=== PATIENT | female | born 1970 | race Caucasian/White ===

== ENCOUNTER 2022-11-17 16:50 | Outpatient (CLI) | payer OTHER, SELFPAY ==
--- NOTE | 2022-11-17 16:45 | CRLHL7_ITS ---
For Patients: As a result of the Cures Act, medical imaging exams and procedure reports are released immediately into your electronic medical record. You may view this report before your referring provider. If you have questions, please contact your health care provider. BILATERAL SCREENING MAMMOGRAM WITH COMPUTER-AIDED DETECTION AND TOMOSYNTHESIS TECHNIQUE: CC and MLO views were obtained. These mammographic images have been obtained using full-field digital technique. These mammographic images were interpreted with the benefit of computer-aided detection. Breast Tomosynthesis was used in this interpretation. COMPARISON FILM: 06/24/21, 08/17/16, 09/20/14. FINDINGS: There are scattered areas of fibroglandular density IMPRESSION: There is no radiographic evidence for malignancy. ASSESSMENT: BI-RADS Category 1: Negative RECOMMENDATION: Routine screening mammogram in 1 year. A lay language report of this examination will be provided to the patient. Jefry Kim M.D. Diagnostic Radiologist [email or web address] Transcribed: 3:59 p.mSushila hdz/Dictated by: Jefry Kim MD @ 11/18/2022 8:59:00 AM (Electronically Signed)
== END 2022-11-17 16:51 | disposition home or self-care (01) ==
PROVIDERS: Visit Provider Registered Nurse
DX: Z12.31 Encounter for screening mammogram for malignant neoplasm of breast (principal)
CPT/HCPCS: 77063; 77067; T1013

== ENCOUNTER 2023-01-21 23:07 | Emergency (ER) | payer OTHER, SELFPAY ==
[2023-01-21 23:16] VITALS: BP 154/86; PULSE 90; RESP 20; TEMP 37.1; O2SAT 100; BMI 29.9
--- NOTE | 2023-01-21 23:55 | ED_ITS ---
HPI - General Adult General Chief complaint: Abdominal Pain Stated complaint: pain in her abdomen, ovaries especially Time Seen by Provider: 01/22/23 00:01 Source: patient and family Mode of arrival: ambulatory Limitations: language barrier ( daughter acts as behavioral health counselor. I have good foundations and Danish in can confirm that she is interpreting correctly and very well.) History of Present Illness HPI narrative: 52-year-old female has experienced postmenopausal bleeding now on 2 episodes since October. The 1st episode was light. Tonight she had an episode of heavy sudden cramping and had a gush of vaginal blood on the toilet. It slowed fairly quickly afterwards and is now only very light trickle and only when she wipes. After the gush of blood, she had urge to go to the bathroom and had 3 fairly loose bowel movements in short succession. She also had a single episode of vomiting. She took Tylenol and is feeling much better now. She takes aspirin for cardiac prophylaxis under the direction of her physician but she has no personal history of coronary artery disease, strokes or other history of clots. Patient is undergoing workup to have this postmenopausal bleeding worked up. I do review and see that she had a pelvic ultrasound just last week. This did show a thickened endometrium. She had normal ovaries. She had blood work performed just a few weeks ago as well and this did not demonstrate any anemia or abnormal platelets. On further questioning, she is actually scheduled to have an endometrial biopsy performed in about 3 weeks through our gynecology department also. Pain has improved markedly. It was located in the suprapubic region. No dysuria. No prior history of similar severe pain. Reports felt like I was giving . Past medical history notable for type 2 diabetes, hyperlipidemia, GERD and fibromyalgia. She reports that her only home medications are insulin, metformin, omeprazole and she does take naproxen sometimes for her fibromyalgia, none recently. Socially, she is a nonsmoker. She denies any family history of gynecological cancers. ROS is notable for the gynecological symptoms as above only, otherwise denies times 12 systems. Related Data Home Medications Medication Instructions Recorded Confirmed aspirin 81 mg tablet,delayed 81 mg PO QDAY 11/17/22 01/21/23 release insulin NPH human semi-syn 100 unit subcut 11/17/22 11/17/22 unit/mL subcutaneous cartridge melatonin 10 mg tablet 10 mg PO QHS 11/17/22 01/21/23 metformin 1,000 mg tablet 1,000 mg PO BID 11/17/22 01/21/23 naproxen 250 mg tablet 250 mg PO BID PRN 11/17/22 01/21/23 omeprazole 20 mg capsule,delayed 20 mg PO QDAY 11/17/22 01/21/23 release Allergies Allergy/AdvReac Type Severity Reaction Status Date / Time No Known Drug Allergies Allergy Verified 01/21/23 23:16 PFSH PFS Medical History Diabetes mellitus, type II Fibromyalgia Hyperlipidemia Surgical History History of carpal tunnel release of both wrists (2000) Family History Sister Diabetes Brother Diabetes Paternal Grandmother High blood pressure Heart disease Paternal Grandfather High blood pressure Heart disease Social History Smoking Status: Never smoker Exam Const: Vital Signs, click to edit/add: Vital Signs - 24 hr 01/21/23 23:16 Temperature 98.8 F Pulse Rate [Left P ulse Oximeter] 90 Respiratory Rate 20 Blood Pressure [Ri ght Upper Arm] 154/86 H Pulse Oximetry 100 Oxygen Delivery Me thod Room Air Documenting provider has reviewed patient's vital signs: yes Common normals: no apparent distress General appearance: cooperative, comfortable and well kempt HENMT: Common normals: normocephalic Head and scalp: normocephalic Mouth: oral and palatal mucosa normal Throat: posterior oropharynx normal Neck & C-Spine: Common normals: full ROM, no lymphadenopathy and thyroid normal Thyroid: thyroid normal Resp: Common normals: normal respiratory effort, no use of accessory muscles and clear to auscultation bilaterally Effort & inspection: able to speak in complete sentences Auscultation: clear to auscultation bilaterally Cardio: Common normals: regular rate, regular rhythm, S1 normal heart sound, S2 normal heart sound and no murmurs Rate: regular rate Rhythm: regular rhythm Heart sounds: S1 normal and S2 normal GI: Common normals: Normal to inspection, nondistended, normoactive bowel sounds present, soft to palpation, non-tender, no hepatosplenomegaly and no masses Palpation: soft and no hepatosplenomegaly Extremity: Common normals: no pedal edema Neuro: Motor exam: strength 5/5 throughout and no movement abnormalities noted Psych: Appearance: well kempt Attitude: calm and engaged Activity/motor behavior: appropriate eye contact Insight: insight good Judgement: judgment good Skin: Common normals: no rashes or lesions noted General skin exam: no rashes or lesions noted Course Vital Signs Vital signs: Initial Vital Signs Temperature 98.8 F 01/21/23 23:16 Temperature Source Temporal Artery Scan 01/21/23 23:16 Pulse Rate 90 01/21/23 23:16 Pulse Rhythm 01/21/23 23:16 Pulse Strength 3+ Normal 01/21/23 23:16 Respiratory Rate 20 01/21/23 23:16 Blood Pressure 154/86 H 01/21/23 23:16 Blood Pressure Mean 108 01/21/23 23:16 Blood Pressure Position Standing 01/21/23 23:16 Pulse Oximetry 100 01/21/23 23:16 Oxygen Delivery Method 01/21/23 23:16 Vital Signs Temperature 98.8 F 01/21/23 23:16 Pulse Rate 90 01/21/23 23:16 Respiratory Rate 20 01/21/23 23:16 Blood Pressure 154/86 H 01/21/23 23:16 Pulse Oximetry 100 01/21/23 23:16 Oxygen Delivery Method 01/21/23 23:16 Temperature 98.8 F 01/21/23 23:16 Pulse Rate 90 01/21/23 23:16 Respiratory Rate 20 01/21/23 23:16 Blood Pressure 154/86 H 01/21/23 23:16 Pulse Oximetry 100 01/21/23 23:16 Oxygen Delivery Method 01/21/23 23:16 Medical Decision Making MDM Narrative Medical decision making narrative: Pain has markedly improved, bleeding has stopped. We have an etiology for the postmenopausal bleeding from recent blood work and ultrasound. I do not recommend repeating These, patient and her daughter are agreeable. stressed the importance of having the endometrial biopsy performed. I actually also like for her to stop her aspirin for now since she is only on it for prophylactic reasons. Counseled on use of Aleve, Tylenol as needed for cramping. Discussed how thankfully the blood gushes like she had tonight are pretty rare but they may happen again. Persistent bleeding parameters discussed as reasons to come into the ED. I do not think that she needs to start hormone therapy just yet, we can await the biopsy. Counseled that if the bleeding happens more frequently or if it does not stop within the hour that we discussed, she should come back to the ED and or we should consult Gynecology. She verbalized understanding and agreement. Hemoglobin 13 earlier this month, I do not recommend that we repeat it. Normal platelets reviewed as well. Discharge Plan Discharge Clinical Impression: Endometrial thickening on ultrasound, DUB (dysfunctional uterine bleeding) Patient Disposition: Home w/ Parent or Adult Condition: Improved Instructions: Endometrial Biopsy (DC) Additional Instructions: I am thankful that the workup for your pelvic pain has already been done for me. The ultrasound clearly shows a thickened lining of your uterus. This is not normal after menopause. As we discussed, it does need a biopsy to see if there are abnormal cells. I am thankful that your biopsy is already scheduled for a couple of weeks from now. Stop your aspirin. You may restart it when the [employer] tells you it is safe to do so. Unfortunately, you may have more episodes where you get severe cramping and passed a blood clot. As long as the bleeding stops or slow significantly like today, this is not worrisome. If you keep bleeding heavily for over an hour, please come to the emergency department. It is okay to wear a maxi pad to help measure how heavy the bleeding is. For pain, I recommend Aleve 2 tablets up to 3 times daily as needed. If the pain is still very bothersome, take Tylenol 1000 mg every 6 hours. It is okay to use a heating pad for pain as well. Often, the pain comes in unpredictable spurts and thankfully not very often. If you start having frequent episodes, please call the [employer] [facility] [employer] for earlier management. Sometimes we need to put you on hormone therapy to slow the bleeding if it is heavy. If the pain is severe and not relieved by the Aleve and Tylenol, your welcome to seek repeat evaluation here in the emergency department. The blood work that you had performed earlier this month did not show any significant anemia. Activity Level: No Restrictions Discharge Diet: Diabetic Prescriptions: No Action metformin 1,000 mg tablet 1,000 mg PO BID aspirin 81 mg tablet,delayed release (DR/EC) 81 mg PO QDAY Label Comments: TAKE ONE TABLET BY MOUTH EVERY DAY omeprazole 20 mg capsule,delayed release(DR/EC) 20 mg PO QDAY Label Comments: TAKE ONE CAPSULE BY MOUTH ONCE DAILY BEFORE A MEAL naproxen 250 mg tablet 250 mg PO BID PRN Label Comments: TAKE ONE TABLET BY MOUTH TWICE A DAY NEEDED FOR PAIN. TAKE WITH FOOD. melatonin 10 mg tablet 10 mg PO QHS insulin NPH human semi-syn 100 unit/mL cartridge subcut Follow Up/Referrals: Provider,Not a Local [Primary Care Provider] - Stand Alone [facility]: [facility]
== END 2023-01-22 00:15 | disposition home or self-care (01) ==
LOC: ED 01-22 00:12
PROVIDERS: Emergency Provider Family Medicine
DX: N93.8 Other specified abnormal uterine and vaginal bleeding (principal); N85.00 Endometrial hyperplasia, unspecified
CPT/HCPCS: 99282; 99283

== ENCOUNTER 2023-10-09 23:13 | Emergency (ER) | payer OTHER, SELFPAY ==
[2023-10-09 23:19] VITALS: BP 136/76; PULSE 75; RESP 18; TEMP 36.2; O2SAT 98; BMI 28.2
[2023-10-10] VITALS: BP 136/76; PULSE 76; RESP 18; O2SAT 98
--- NOTE | 2023-10-10 00:02 | ED_ITS ---
HPI - Dizziness General Time Seen by Provider: 00:02 Date Seen: 10/10/23 Chief Complaint: Dizziness/Vertigo Stated Complaint: nausa vomiting Time Seen by Provider: 10/09/23 23:16 Source: patient and RN notes reviewed Mode of arrival: ambulatory Limitations: no limitations History of Present Illness HPI Narrative: Adla is a very pleasant 53-year-old female with history of type 2 diabetes, hypertension, hyperlipidemia who comes to the emergency room for evaluation regarding intermittent dizziness. Patient notes the dizziness started approximately 3 weeks ago and has been on and off. We do discuss vertigo versus lightheadedness and this appears to be more lightheadedness. This has not affected her vision. Today she actually had an episode of vomiting x1 and some loose stools earlier this morning and has been persistently lightheaded all day. She notes that she has a fullness or discomfort in her right ear and even a bit of a headache on the right mormon. She she notes that she has had numbness on the left side of her face yesterday but that is not present today. He has not had any falls. Movement seems to increase the dizziness. Lying in room 3 at this time she has no dizziness. Alda is daughter states that on August 24 she was seen at the [facility]. At that time told that she had allergies based on ear exam. Patient is also recently been told that she is low on iron and vitamin-D. Related Data Home Medications Medication Instructions Recorded Confirmed aspirin 81 mg tablet,delayed 81 mg PO QDAY 11/17/22 01/21/23 release insulin NPH human semi-syn 100 unit subcut 11/17/22 11/17/22 unit/mL subcutaneous cartridge melatonin 10 mg tablet 10 mg PO QHS 11/17/22 01/21/23 metformin 1,000 mg tablet 1,000 mg PO BID 11/17/22 01/21/23 naproxen 250 mg tablet 250 mg PO BID PRN 11/17/22 01/21/23 omeprazole 20 mg capsule,delayed 20 mg PO QDAY 11/17/22 01/21/23 release Allergies Allergy/AdvReac Type Severity Reaction Status Date / Time No Known Drug Allergies Allergy Verified 01/21/23 23:16 Review of Systems Status of ROS: Reports: 6 or more systems reviewed and unremarkable except as noted in History and below Const: Denies: fever, chills or change in weight Eyes: Denies: change in vision or blurry vision ENMT: Denies: neck pain or difficulty swallowing Cardio: Reports: chest pain (Has noted 2 episodes of chest discomfort on the left); Denies: shortness of breath with exertion Resp: Denies: shortness of breath or cough GI: Reports: abdominal pain (Occasionally right lower quadrant but none today), nausea, vomiting (Once) and diarrhea (Loose stool x1 yesterday morning); Denies: difficulty swallowing : Denies: painful urination Musculo: Denies: neck pain Integ/Breast: Denies: rash Neuro: Reports: headache PFSH PFSH Medical History Diabetes mellitus, type II ?E11.9 - Type 2 diabetes mellitus without complications (ICD-10) Hyperlipidemia ?E78.5 - Hyperlipidemia, unspecified (ICD-10) Fibromyalgia ?M79.7 - Fibromyalgia (ICD-10) Surgical History History of carpal tunnel release of both wrists (2000) ?Z98.890 - Other specified postprocedural states (ICD-10) Family History Sister Diabetes Brother Diabetes Paternal Grandmother High blood pressure Heart disease Paternal Grandfather High blood pressure Heart disease Social History Smoking Status: Never smoker Do you use any of these nicotine containing products: None Second hand tobacco smoke exposure: No How often do you have a drink containing alcohol: never How often do you have six or more drinks on one occasion: Never AUDIT-C Alcohol total score: 0 Non-prescribed substance use: denies use service: No Exam Narrative: Exam Narrative: Alert and oriented. French-speaking and daughter interprets for us. EOM is full with pupils equal round and reactive. Face is symmetrical. Oral cavity with moist mucous membranes with palate rising. Neck is supple without lymphadenopathy Left TM with normal. Right TM with large wax plug. Heart with regular rate and rhythm. No additional heart sounds or murmurs noted. Lungs are clear in all lung squires abdomen is soft nontender. NIHSS 0. Upper extremity strength and motor intact lower extremity strength motor intact. Const: Vital Signs, click to edit/add: Vital Signs - 24 hr 10/09/23 23:19 10/10/23 00:00 10/10/23 00:30 Temperature 97.2 F L Pulse Rate [Pulse Oximeter] 75 76 68 Respiratory Rate 18 18 Blood Pressure [Ri ght Upper Arm] 136/76 136/76 128/67 Pulse Oximetry 98 98 96 Oxygen Delivery Me thod Room Air Room Air Documenting provider has reviewed patient's vital signs: yes Course Course ED Course: Differential diagnosis does include but is not limited to TIA/CVA, labyrinthitis, benign positional vertigo, cardiac arrhythmia, viral illness. At this time will obtain EKG, irrigate right ear, check for COVID/influenza/RSV and give 1 L of normal saline with 4 mg of Zofran. We will irrigate here and if not improved will go ahead with blood checks. Reevaluation(s) Reevaluation #1: Ear irrigation on the right ear produces a large wax plug. Patient notes that she is hearing much better and that her symptoms are entirely resolved. Vital Signs Vital signs: Initial Vital Signs Temperature 97.2 F L 10/09/23 23:19 Temperature Source Temporal Artery Scan 10/09/23 23:19 Pulse Rate 75 10/09/23 23:19 Pulse Rhythm Regular 10/09/23 23:19 Respiratory Rate 18 10/09/23 23:19 Blood Pressure 136/76 10/09/23 23:19 Blood Pressure Mean 96 10/09/23 23:19 Blood Pressure Position Supine 10/09/23 23:19 Pulse Oximetry 98 10/09/23 23:19 Oxygen Delivery Method Room Air 10/09/23 23:19 Vital Signs Temperature 97.2 F L 10/09/23 23:19 Pulse Rate 75 10/09/23 23:19 Respiratory Rate 18 10/09/23 23:19 Blood Pressure 136/76 10/09/23 23:19 Pulse Oximetry 98 10/09/23 23:19 Oxygen Delivery Method Room Air 10/09/23 23:19 Temperature 97.2 F L 10/09/23 23:19 Pulse Rate 68 10/10/23 00:30 Respiratory Rate 18 10/10/23 00:00 Blood Pressure 128/67 10/10/23 00:30 Pulse Oximetry 96 10/10/23 00:30 Oxygen Delivery Method Room Air 10/10/23 00:00 Medications Administered Medications: Generic Name Dose Route Start Last Admin Trade Name Nereyda PRN Reason Stop Dose Admin Carbamide Peroxide 0 drop 10/10/23 21:00 10/10/23 00:45 Carbamide Peroxide Drops EAR-RIGHT 8 drop HS FABRICIO Administration Sodium Chloride 1,000 mls @ 1,000 mls/hr 10/10/23 00:33 10/10/23 00:39 0.9 % Sodium Chloride 1000 Ml IV 10/10/23 01:32 1,000 mls/hr .Q1H FABRICIO Administration Ondansetron HCl 4 mg 10/10/23 00:32 10/10/23 00:43 Ondansetron 2 Mg/Ml Inj IVP 10/10/23 00:33 4 mg ONCE ONE Administration MDM - Dizziness MDM Narrative Medical decision making narrative: 1. Dizziness-has been intermittent over the last 3 weeks associated with a fullness in the right ear. Today dizziness has been persistent. Symptoms have resolved after irrigation of the ear. 2. Right ear wax plug-large amount of wax removed through irrigation after pretreatment with debrox. Re-examination of the ear shows normal TM with irritation mild erythema of the proximal canal. 3. Nausea/vomiting/diarrhea-very mild with 1 episode of vomiting and 1 loose stool yesterday morning. COVID/influenza/RSV negative at this time. 4. Disposition-patient noted to be feeling much better. Is sitting up at this time symptoms have resolved. Will discharge her home. Return for worsening symptoms or onset of new symptoms. Medical Records Attestation: I reviewed the patient's medical records. Lab Data Attestation: I reviewed the patient's lab results. Labs: Lab Results 10/10/23 Range/Units 00:32 SARS-CoV-2 (PCR) Negative SARS-CoV-2 (Negative) Influenza Type A (PCR) Negative PCR FLU A (Negative) Influenza Type B (PCR) Negative PCR FLU B (Negative) RSV (PCR) Negative PCR RSV (Negative) ECG Data Attestation: I personally reviewed and interpreted this ECG as follows: ECG interpretation date: 10/10/23 Interpretation: Patient EKG shows sinus rhythm at a rate of 70. I do not note any acute ST or T-wave changes. QT and RI intervals within normal limits. Discharge Plan Discharge Clinical Impression: Dizziness Impacted ear wax Qualifiers: Laterality: right Qualified Code(s): H61.21 - Impacted cerumen, right ear Additional Instructions: Return to the emergency room for worsening symptoms. Prescriptions: No Action metformin 1,000 mg tablet 1,000 mg PO BID aspirin 81 mg tablet,delayed release (DR/EC) 81 mg PO QDAY Patient Comments: TAKE ONE TABLET BY MOUTH EVERY DAY omeprazole 20 mg capsule,delayed release(DR/EC) 20 mg PO QDAY Patient Comments: TAKE ONE CAPSULE BY MOUTH ONCE DAILY BEFORE A MEAL naproxen 250 mg tablet 250 mg PO BID PRN Patient Comments: TAKE ONE TABLET BY MOUTH TWICE A DAY NEEDED FOR PAIN. TAKE WITH FOOD. melatonin 10 mg tablet 10 mg PO QHS insulin NPH human semi-syn 100 unit/mL cartridge subcut Follow Up/Referrals: Provider,Not a Local [Primary Care Provider] -
[2023-10-10 00:30] VITALS: BP 128/67; PULSE 68; O2SAT 96
[2023-10-10] MEDS: 0.9 % SODIUM CHLORIDE 1000 ml 1,000 ML IV (00:39)
[2023-10-10] MEDS: ONDANSETRON 2 MG/ML inj 4 MG IVP (00:43)
--- NOTE | 2023-10-10 01:14 | ED.NURSE ---
ear was irrigated with elephant wash after the debrox. had removed large amount of wax. does report that she feels better now.
[2023-10-10 01:18] LABS: PCR FLU A Negative PCR FLU A (Negative); PCR FLU B Negative PCR FLU B (Negative); PCR RSV Negative PCR RSV (Negative)
[2023-10-10 01:29] LABS: SARS PCR* Negative SARS-CoV-2 (Negative)
== END 2023-10-10 02:12 | disposition home or self-care (01) ==
LOC: ED 10-10 01:12
PROVIDERS: Emergency Provider Family Medicine
DX: R42 Dizziness and giddiness (principal); H61.21 Impacted cerumen, right ear
CPT/HCPCS: 87631; 96374; 99284; J2405; J7030

== ENCOUNTER 2025-01-30 15:26 | Outpatient (CLI) | payer OTHER, SELFPAY ==
--- NOTE | 2025-01-30 15:40 | CRLHL7_ITS ---
For Patients: As a result of the Century Cures Act, medical imaging exams and procedure reports are released immediately into your electronic medical record. You may view this report before your referring provider. If you have questions, please contact your health care provider. BILATERAL SCREENING MAMMOGRAM WITH COMPUTER-AIDED DETECTION AND TOMOSYNTHESIS TECHNIQUE: CC and MLO views were obtained. These mammographic images have been obtained using full-field digital technique. These mammographic images were interpreted with the benefit of computer-aided detection. Breast Tomosynthesis was used in this interpretation. COMPARISON FILM: 01/18/24, 11/17/22, 06/24/21. FINDINGS: There are scattered areas of fibroglandular density. IMPRESSION: There is no radiographic evidence for malignancy. ASSESSMENT: BI-RADS Category 2: Benign RECOMMENDATION: Routine screening mammogram in 1 year. A lay language report of this examination will be provided to the patient. Jefry Kim M.D. Diagnostic Radiologist [email or web address] SP/Dictated by: Jefry Kim MD @ 02/06/2025 11:18:00 AM (Electronically Signed)
== END 2025-01-30 15:27 | disposition home or self-care (01) ==
PROVIDERS: Visit Provider Nurse Practitioner Family
DX: Z12.31 Encounter for screening mammogram for malignant neoplasm of breast (principal)
CPT/HCPCS: 77063; 77067